=== PATIENT | female | born 1990 | race Caucasian/White ===

== ENCOUNTER 2017-08-19 15:46 | Emergency (ER) | payer OTHER ==
[~2017-08-19] VITALS: Ht 160 cm; Wt 59.0 kg
[2017-08-19 15:46] VITALS: BP_SYST 112
[2017-08-19] MEDS ORDERED: IBUPROFEN 800 MG TABLET PO ONE (16:00)
[2017-08-19 17:29] VITALS: BP_SYST 110
== END 2017-08-19 17:29 | disposition home or self-care (01) ==
LOC: SED 15:46
DX: S83.91XA Sprain of unspecified site of right knee, initial encounter (principal); X58.XXXA Exposure to other specified factors, initial encounter; Y93.41 Activity, dancing; Y92.89 Other specified places as the place of occurrence of the external cause; Y99.8 Other external cause status
CPT/HCPCS: 73564; 99284